=== PATIENT | male | born 1990 | race American Indian/Alaskan Native ===

== ENCOUNTER 2017-07-10 10:14 | Emergency (ER) | payer SELFPAY ==
[~2017-07-10 10:14] MED LIST: DUONEB *Not for PRN Use IH ONE
[2017-07-10 10:24] VITALS: BP 126/67
[2017-07-10] MEDS ORDERED: ROCEPHIN IM ONE (15:04)
[2017-07-10] MEDS ORDERED: XYLOCAINE 1% MPF 5 mL INFILTRATI ONE (15:04)
--- NOTE | 2017-07-10 15:06 | Emergency Department Report ---
ED Male HPI - General Chief complaint: Urogenital-Male Stated complaint: UTI Time Seen by Provider: 07/10/17 14:44 Source: patient Mode of arrival: Ambulatory Limitations: No Limitations - History of Present Illness Initial comments: Is a 26-year-old Male who states he is having some dysuria. Patient states he went to [facility] and was called today and told that he was negative for battery and chlamydia however still having symptoms. Patient also received azithromycin and did not receive Rocephin. Patient also stated that he occasionally gets sharp pains in his testicles although he has no swelling. Patient states the discomfort is 3 out of 10 in severity. Patient denies nausea vomiting diarrhea at this time. - Related Data Allergies Allergy/AdvReac Type Severity Reaction Status Date / Time No Known Allergies Allergy Unverified 07/10/17 10:19 ED Review of Systems ROS: Stated complaint: UTI Other details as noted in HPI Comment: All other systems reviewed and negative ED Past Medical Hx - Past Medical History Previous Medical History?: No - Surgical History Past Surgical History?: No - Social History Smoking Status: Current Some Day Smoker Substance Use Type: None ED Physical Exam - General Limitations: No Limitations General appearance: alert, in no apparent distress - Head Head exam: Present: atraumatic, normocephalic - Eye Eye exam: Present: normal appearance - ENT ENT exam: Present: mucous membranes moist - Neck Neck exam: Present: normal inspection - Respiratory Respiratory exam: Present: normal lung sounds bilaterally. Absent: respiratory distress - Cardiovascular Cardiovascular Exam: Present: regular rate, normal rhythm. Absent: systolic murmur, diastolic murmur, rubs, gallop - GI/Abdominal GI/Abdominal exam: Present: soft, normal bowel sounds - Rectal Rectal exam: Present: deferred - Extremities Exam Extremities exam: Present: normal inspection - Back Exam Back exam: Present: normal inspection - Neurological Exam Neurological exam: Present: alert, oriented X3 - Psychiatric Psychiatric exam: Present: normal affect, normal mood - Skin Skin exam: Present: warm, dry, intact, normal color. Absent: rash ED Course Vital Signs 07/10/17 10:20 Temperature 98.4 F Pulse Rate 61 Respiratory 18 Rate Blood Pressure 126/67 O2 Sat by Pulse 100 Oximetry ED Medical Decision Making - Medical Decision Making Patient tested negative for gonorrhea chlamydia are ready, do think it's necessary to treat this patient here in the emergency Department placed patient on Cipro to cover for a mild epididymitis. Patient will be given Rocephin since he did not receive an caseous STD or report was a false negative. Patient will be discharged home at this time. Critical care attestation.: If time is entered above; I have spent that time in minutes in the direct care of this critically ill patient, excluding procedure time. ED Disposition Clinical Impression: Urethritis Disposition: DC- TO HOME OR SELFCARE Is pt being admited?: No Does the pt Need Aspirin: No Condition: Stable Instructions: Nonspecific Urethritis in Men (ED) Referrals: OLEGARIO NEAL MD [Staff Physician] - 7-10 days (if symptoms persist please see a urologist) Forms: STI Treatment and Prevention
== END 2017-07-10 15:51 | disposition home or self-care (01) ==
LOC: ED 10:14
DX: N34.2 Other urethritis (principal); F17.200 Nicotine dependence, unspecified, uncomplicated
CPT/HCPCS: 96372; 99282; J0696

== ENCOUNTER 2020-12-21 10:33 | Emergency (ER) | payer SELFPAY ==
[2020-12-21 10:40] VITALS: BP 102/69
--- NOTE | 2020-12-21 10:57 | Emergency Department Report ---
ED Upper Extremity Inj HPI - General Chief Complaint: Extremity Injury, Upper Stated Complaint: RT SHOULDER PAIN Time Seen by Provider: 12/21/20 10:47 Source: patient Mode of arrival: Ambulatory Limitations: No Limitations - History of Present Illness Initial Comments: Patient is 30 years old male with no significant past medical history. Patient presented to the ER complaining of right shoulder pain and right elbow pain for approximately 2month. Patient stated that symptoms started when he lifted something heavy. Patient denied any other injuries. No weakness numbness or tingling sensation. MD Complaint: Injury to:: right, shoulder -: month(s) Other Extremity Injury: Elbow: Right, Shoulder: Right Other Injuries: none Improves With: immobilization Worsens With: movement of extremity Context: sports-related injury Associated Symptoms: denies other symptoms - Related Data Previous Rx's Medication Instructions Recorded Last Taken Type Ciprofloxacin HCl [Cipro] 500 mg PO BID #14 tablet 07/10/17 Unknown Rx Allergies Allergy/AdvReac Type Severity Reaction Status Date / Time No Known Allergies Allergy Verified 12/21/20 10:34 ED Review of Systems ROS: Stated complaint: RT SHOULDER PAIN Other details as noted in HPI Comment: All other systems reviewed and negative Constitutional: denies: chills, fever Cardiovascular: denies: chest pain, palpitations, dyspnea on exertion Gastrointestinal: denies: abdominal pain, nausea, vomiting Musculoskeletal: arthralgia, myalgia. denies: back pain Neurological: denies: headache, weakness ED Past Medical Hx - Past Medical History Previous Medical History?: No - Surgical History Past Surgical History?: No - Social History Smoking Status: Current Some Day Smoker Substance Use Type: None - Medications Home Medications: Home Medications Medication Instructions Recorded Confirmed Last Taken Type Ciprofloxacin HCl [Cipro] 500 mg PO BID #14 tablet 07/10/17 Unknown Rx ED Physical Exam - General Limitations: No Limitations General appearance: alert, in no apparent distress - Head Head exam: Present: atraumatic, normocephalic, normal inspection - Eye Eye exam: Present: normal appearance, PERRL - ENT ENT exam: Present: normal exam, normal orophraynx, mucous membranes moist - Neck Neck exam: Present: normal inspection, full ROM. Absent: tenderness, meningismus - Respiratory Respiratory exam: Present: normal lung sounds bilaterally - Cardiovascular Cardiovascular Exam: Present: regular rate, normal rhythm, normal heart sounds - GI/Abdominal GI/Abdominal exam: Present: soft, normal bowel sounds. Absent: distended, tenderness, guarding, rebound, rigid, organomegaly, mass, bruit, pulsatile mass, hernia - Extremities Exam Extremities exam: Present: normal inspection, full ROM, normal capillary refill. Absent: tenderness - Back Exam Back exam: Present: normal inspection, full ROM. Absent: CVA tenderness (R), CVA tenderness (L) - Neurological Exam Neurological exam: Present: alert, oriented X3, CN II-XII intact, normal gait, reflexes normal - Psychiatric Psychiatric exam: Present: normal mood - Skin Skin exam: Present: warm, intact, normal color ED Course Vital Signs 12/21/20 10:37 Temperature 97.7 F Pulse Rate 68 Respiratory 20 Rate Blood Pressure 102/69 O2 Sat by Pulse 99 Oximetry ED Medical Decision Making - Medical Decision Making Patient is 30 years old male with no significant past medical history. Patient presented to the ER complaining of right shoulder pain and right elbow pain for approximately 2month. Patient stated that symptoms started when he lifted something heavy. Patient denied any other injuries. No weakness numbness or tingling sensation. Patient has full range of motion. No tenderness. I believe this is most likely sprain. Patient started on Naprosyn 500 mg twice a day for 7 days advised to take it with food. Patient advised to follow-up with his primary doctor in the next 2 to 3 days and to return to the ER if he develop any new symptoms. Critical care attestation.: If time is entered above; I have spent that time in minutes in the direct care of this critically ill patient, excluding procedure time. ED Disposition Clinical Impression: Sprain of right shoulder, Sprain of right elbow Disposition: HOME / SELF CARE / HOMELESS Is pt being admited?: No Condition: Stable Instructions: Elbow Sprain, Shoulder Sprain Referrals: ALYSSA HILLIARD MD [Staff Physician] - 3-5 Days
== END 2020-12-21 11:15 | disposition home or self-care (01) ==
LOC: ED 10:33
DX: S43.491A Other sprain of right shoulder joint, initial encounter (principal); S53.491A Other sprain of right elbow, initial encounter; F17.200 Nicotine dependence, unspecified, uncomplicated; X58.XXXA Exposure to other specified factors, initial encounter; Y93.89 Activity, other specified; Y92.89 Other specified places as the place of occurrence of the external cause; Y99.8 Other external cause status
CPT/HCPCS: 99281